=== PATIENT | female | born 2000 | race Caucasian/White ===

== ENCOUNTER 2018-07-09 01:23 | Emergency (ER) | payer OTHER ==
[~2018-07-09] VITALS: Ht 162.6 cm; Wt 72.6 kg
== END 2018-07-09 02:29 | disposition home or self-care (01) ==
LOC: ER 01:23
DX: B00.1 Herpesviral vesicular dermatitis (principal)

== ENCOUNTER 2020-05-29 01:03 | Inpatient (IN) | payer OTHER ==
[~2020-05-29] VITALS: Ht 162.6 cm; Wt 73.0 kg
[2020-05-29] MEDS ORDERED: PRENATAL TABLE1 EAC1 PO (01:31)
== END 2020-05-31 13:43 | disposition home or self-care (01) | DRG 807 ==
LOC: LDR 01:03 → OB/GYN 01:03
PROVIDERS: ADMIT Obstetrics & Gynecology; ATTEND Obstetrics & Gynecology
PROC: 10E0XZZ Delivery of Products of Conception, External Approach (ICD-10-PCS; principal; 2020-05-29)
PROC: 4A1HXFZ Monitoring of Products of Conception, Cardiac Rhythm, External Approach (ICD-10-PCS; 2020-05-29)
DX: O99.284 Endocrine, nutritional and metabolic diseases complicating childbirth (principal); E03.9 Hypothyroidism, unspecified; Z37.0 Single live birth; Z3A.37 37 weeks gestation of pregnancy; Z20.822 Contact with and (suspected) exposure to COVID-19